=== PATIENT | male | born 1945 | race Caucasian/White ===

== ENCOUNTER 2023-05-01 04:34 | Day surgery (SDC) | payer OTHER ==
[2023-04-30 15:29] VITALS: BMI 29.7
[2023-05-01] MEDS ORDERED: LIDOCAINE HCL 2% JELLY 11 ML TP ONE (10:53)
[2023-05-01] MEDS ORDERED: ACETAMINOPHEN 1000 MG/100 ML BAG IVPB ONE (11:29)
[2023-05-01] MEDS ORDERED: PROPOFOL 20 ML ONE (11:34)
[2023-05-01] MEDS ORDERED: MIDAZOLAM HCL 2 MG/2 ML SINGLE DOSE VIAL ONE (11:34)
[2023-05-01] MEDS ORDERED: ceFAZolin SODIUM 1 GM VIAL ONE ×2 (11:43)
[2023-05-01] MEDS ORDERED: ceFAZolin SODIUM 1 GM VIAL IVPB ONE (11:43)
[2023-05-01] MEDS ORDERED: DEXTROSE 5%-0.45% SALINE 1,000 ML IV SCH (11:45)
[2023-05-01] MEDS ORDERED: ONDANSETRON 4 MG/2 ML VIAL IVPUSH PRN (12:28)
[2023-05-01] MEDS ORDERED: oxyCODONE HCL 5 MG TABLET PO PRN ×2 (12:28)
[2023-05-01] MEDS ORDERED: ACETAMINOPHEN 325 MG TABLET (FP) PO PRN (12:28)
[2023-05-01] MEDS ORDERED: LACTATED RINGERS SOLUTION 1,000 ML IV SCH (12:30)
[2023-05-01] MEDS ORDERED: ACETAMINOPHEN INJECTION 100 ML IVPB ONE (13:04)
[2023-05-01 14:46] VITALS: RESP 18
[2023-05-01 15:41] VITALS: BP 143/84; PULSE 77; TEMP 97.6
== END 2023-05-01 15:30 | disposition home or self-care (01) ==
LOC: JASU-SURG 04:34
PROVIDERS: ATTEND Urology
PROC: 0TBB8ZZ Excision of Bladder, Via Natural or Artificial Opening Endoscopic (ICD-10-PCS; principal; 2023-05-01 12:30)
DX: C67.9 Malignant neoplasm of bladder, unspecified (principal)
CPT/HCPCS: 94760

== ENCOUNTER 2023-10-04 04:11 | Day surgery (SDC) | payer OTHER ==
[2023-09-27 15:57] VITALS: BMI 29.0
[2023-10-04] MEDS ORDERED: ONDANSETRON 4 MG/2 ML VIAL ONE (12:33)
[2023-10-04] MEDS ORDERED: PROPOFOL 20 ML ONE (12:33)
[2023-10-04] MEDS ORDERED: MIDAZOLAM HCL 2 MG/2 ML SINGLE DOSE VIAL ONE (12:33)
[2023-10-04] MEDS ORDERED: LIDOCAINE HCL/PF 2% SDV 5ML VIAL ONE (12:33)
[2023-10-04] MEDS ORDERED: ONDANSETRON 4 MG/2 ML VIAL IVPUSH PRN (12:59)
[2023-10-04] MEDS ORDERED: PROMETHAZINE HCL 25 MG/1 ML VIAL IVPB PRN (12:59)
[2023-10-04] MEDS ORDERED: oxyCODONE HCL 5 MG TABLET PO PRN ×2 (12:59)
[2023-10-04] MEDS ORDERED: ACETAMINOPHEN 1000 MG/100 ML BAG IVPB PRN (12:59)
[2023-10-04] MEDS ORDERED: LACTATED RINGERS SOLUTION 1,000 ML IV SCH (13:00)
[2023-10-04] MEDS ORDERED: ACETAMINOPHEN 1000 MG/100 ML BAG IVPB ONE (13:03)
[2023-10-04] MEDS ORDERED: DEXAMETHASONE SOD PHOSPHATE 4 MG/1 ML VIAL ONE (13:07)
[2023-10-04] MEDS ORDERED: DEXTROSE 5%-0.45% SALINE 1,000 ML IV SCH (13:15)
[2023-10-04] MEDS ORDERED: ceFAZolin SODIUM 1 GM VIAL ONE (13:22)
[2023-10-04] MEDS ORDERED: ceFAZolin 2 GRAM PREMIX BAG IVPB ONE (13:22)
[2023-10-04] MEDS ORDERED: ACETAMINOPHEN INJECTION 100 ML IVPB ONE (13:58)
[2023-10-04 15:20] VITALS: RESP 18
[2023-10-04 16:20] VITALS: BP 148/73; PULSE 75; TEMP 97.8
== END 2023-10-04 15:43 | disposition home or self-care (01) ==
LOC: JASU-SURG 04:11
PROVIDERS: ATTEND Urology
PROC: 0T5B8ZZ Destruction of Bladder, Via Natural or Artificial Opening Endoscopic (ICD-10-PCS; principal; 2023-10-04 13:00)
DX: D49.4 Neoplasm of unspecified behavior of bladder (principal)
CPT/HCPCS: 94760

== ENCOUNTER 2024-06-22 03:58 | Day surgery (SDC) | payer OTHER ==
[2024-06-17 15:43] VITALS: BMI 29.0
[2024-06-22] MEDS ORDERED: PROPOFOL 20 ML ONE (07:18)
[2024-06-22] MEDS ORDERED: MIDAZOLAM HCL 2 MG/2 ML SINGLE DOSE VIAL ONE (07:18)
[2024-06-22] MEDS ORDERED: LIDOCAINE HCL/PF 2% SDV 5ML VIAL ONE (07:18)
[2024-06-22] MEDS ORDERED: DEXTROSE 5%-0.45% SALINE 1,000 ML IV SCH (08:15)
[2024-06-22] MEDS ORDERED: ceFAZolin SODIUM 1 GM VIAL ONE (08:16)
[2024-06-22] MEDS ORDERED: DEXAMETHASONE SOD PHOSPHATE 4 MG/1 ML VIAL ONE (08:16)
[2024-06-22] MEDS: ceFAZolin 2 GRAM PREMIX BAG IVPB ONE (08:18)
[2024-06-22] MEDS ORDERED: oxyCODONE HCL 5 MG TABLET PO PRN ×2 (08:25)
[2024-06-22] MEDS ORDERED: PROMETHAZINE HCL 25 MG/1 ML VIAL IVPB PRN (08:25)
[2024-06-22] MEDS ORDERED: ONDANSETRON 4 MG/2 ML VIAL IVPUSH PRN (08:25)
[2024-06-22] MEDS ORDERED: LACTATED RINGERS SOLUTION 1,000 ML IV SCH (08:30)
[2024-06-22] MEDS ORDERED: ONDANSETRON 4 MG/2 ML VIAL ONE (08:31)
[2024-06-22] MEDS ORDERED: KETOROLAC TROMETHAMINE 30 MG/1 ML VIAL ONE (08:31)
[2024-06-22] MEDS: ACETAMINOPHEN 1000 MG/100 ML BAG IVPB ONE (09:00)
[2024-06-22] MEDS: ACETAMINOPHEN INJECTION 100 ML ONE (09:00)
[2024-06-22 11:20] VITALS: RESP 20
[2024-06-22 13:46] VITALS: BP 140/70; PULSE 64; TEMP 98
== END 2024-06-22 13:46 | disposition home or self-care (01) ==
LOC: JASU-SURG 03:58
PROVIDERS: ATTEND Urology
PROC: 0TTB8ZZ Resection of Bladder, Via Natural or Artificial Opening Endoscopic (ICD-10-PCS; principal; 2024-06-22 08:00)
DX: C67.0 Malignant neoplasm of trigone of bladder (principal)
CPT/HCPCS: 88307-TC; 94760; J0131